=== PATIENT | female | born 1990 | race Caucasian/White ===

== ENCOUNTER 2018-08-19 09:59 | Emergency (ER) | payer MEDICAID, OTHER ==
[~2018-08-19] VITALS: Ht 162.6 cm; Wt 56.0 kg
[2018-08-19] MEDS ORDERED: METHYLPREDNISOLONE SOD SUCC 125 MG/2 ML VIAL IV ONE (12:00)
[2018-08-19] MEDS ORDERED: DIPHENHYDRAMINE 50MG CAPSULE PO ONE (12:00)
[2018-08-19] MEDS ORDERED: ONDANSETRON HCL 4MG/2ML INJ IV ONE (12:00)
[2018-08-19] MEDS ORDERED: FAMOTIDINE 20MG/2ML VIAL IV ONE (12:00)
[2018-08-19 16:40] VITALS: BP 87/57
== END 2018-08-19 17:19 | disposition home or self-care (01) ==
LOC: ER 09:59
DX: T78.2XXA Anaphylactic shock, unspecified, initial encounter (principal); X58.XXXA Exposure to other specified factors, initial encounter
CPT/HCPCS: 96374; 96375; 99283; J2405; J2930; J3490; Q0163; Z7610

== ENCOUNTER 2021-04-23 16:32 | Observation (INO) | payer MEDICAID ==
[~2021-04-23] VITALS: Ht 165.1 cm; Wt 68.0 kg
== END 2021-04-23 17:55 | disposition home or self-care (01) ==
LOC: 8 EST LDRP 16:32
PROVIDERS: ADMIT Specialist; ATTEND Specialist
DX: O26.899 Other specified pregnancy related conditions, unspecified trimester (principal); R10.30 Lower abdominal pain, unspecified; Z3A.00 Weeks of gestation of pregnancy not specified
CPT/HCPCS: 59025; G0378; 99281; G0379